=== PATIENT | male | born 1970 | race Caucasian/White ===

== ENCOUNTER 2019-01-22 15:22 | Emergency (ER) | payer MEDICAID ==
[2019-01-22] MEDS ORDERED: HYDROMORPHONE HCL INJ/PF 2 MG/ML AMPULE IM ONE (15:41)
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
--- NOTE | 2019-01-22 16:34 | RADIOLOGY REPORT (SQ) ---
EXAM DESCRIPTION: ELBOW LEFT AP/LATERAL COMPLETED DATE/TIME: 01/22/2019 4:16 pm REASON FOR STUDY: fall elbow pain COMPARISON: None. NUMBER OF VIEWS: Four views. TECHNIQUE: AP, lateral, and both oblique radiographic images acquired of the left elbow. LIMITATIONS: None. FINDINGS: MINERALIZATION: Normal. BONES: No acute fracture or dislocation. No worrisome bone lesions. JOINT: No effusion. SOFT TISSUES: No soft tissue swelling. No foreign body. OTHER: No other significant finding. IMPRESSION: NEGATIVE STUDY OF THE LEFT ELBOW. NO RADIOGRAPHIC EVIDENCE OF ACUTE INJURY. TECHNICAL DOCUMENTATION: JOB ID: [id number] [employer]- All Rights Reserved Reading location - IP/workstation name: [email or web address]
--- NOTE | 2019-01-22 16:37 | RADIOLOGY REPORT (SQ) ---
EXAM DESCRIPTION: L SPINE WHOLE COMPLETED DATE/TIME: 01/22/2019 4:16 pm REASON FOR STUDY: fall back pain COMPARISON: None. NUMBER OF VIEWS: Five views including obliques. TECHNIQUE: AP, lateral, oblique, and sacral radiographic images acquired of the lumbar spine. LIMITATIONS: None. FINDINGS: MINERALIZATION: Normal. SEGMENTATION: Normal. No transitional anatomy. ALIGNMENT: Normal. VERTEBRAE: Maintained height. No fracture or worrisome bone lesion. DISCS: Diffuse multilevel disc space loss of height with vertebral body endplate sclerosis and osteop hyte formation. POSTERIOR ELEMENTS: Pedicles and facets are intact. No pars defect or posterior arch defects. HARDWARE: None in the spine. PARASPINAL SOFT TISSUES: Normal. PELVIS: Not in the field of view. Bilateral SI joint sclerosis OTHER: No other significant finding. IMPRESSION: Diffuse multilevel degenerative disc changes throughout the lumbar spine with SI joint s clerosis. No acute findings TECHNICAL DOCUMENTATION: JOB ID: [id number] [employer]- All Rights Reserved Reading location - IP/workstation name: [email or web address]
[2019-01-22 17:25] VITALS: BP 130/84
== END 2019-01-22 17:25 | disposition home or self-care (01) ==
LOC: ER 15:22
DX: S50.02XA Contusion of left elbow, initial encounter (principal); M51.36 Other intervertebral disc degeneration, lumbar region; M54.5 Low back pain; M25.522 Pain in left elbow; W19.XXXA Unspecified fall, initial encounter; Z87.891 Personal history of nicotine dependence
CPT/HCPCS: 73070; 72110; J1170; 96374; 99283